=== PATIENT | female | born 1940 | race Caucasian/White ===

== ENCOUNTER 2016-12-17 08:20 | Emergency (ER) | payer OTHER ==
[~2016-12-17] VITALS: Ht 172.7 cm; Wt 81.0 kg
[~2016-12-17 08:20] MED LIST: ALPRAZOLAM0.5 MG PO; CITRACAL + D M1 EACH PO; LIPITOR20 MG PO; MULTIVITAMIN1 EAC2 PO; PLAVIX75 MG; PREMARIN0.3 MG PO; PROAIR HFA8.5 GM IH; SYMBICORT60 INHALAT IH; ZESTRIL,PRINIV2.5 MG PO
[2016-12-17 09:03] LABS: HEMATOCRIT 40.8 % (36.0-46.0); MCH 29.5 PG (29.0-34.0); MCHC 34.3 G/DL (30.0-36.0); MCV 86.1 FL (83-99); PLATELET COUNT 241 K/uL (156-360); RBC DIS.WIDTH-CV 13.5 % (11.8-14.6); RED BLOOD COUNT 4.74 M/uL (3.80-5.20); WHITE BLOOD COUNT 7.3 K/uL (4.1-10.2)
[2016-12-17 09:16] LABS: CHLORIDE 107 mEq/L (99-109); SODIUM 139 mEq/L (136-147)
[2016-12-17 09:18] LABS: GLUCOSE 95 mg/dL (70-99)
[2016-12-17 09:19] LABS: ANION GAP 11 MEQ/L (2-14)
[2016-12-17 09:22] LABS: GFR ESTIMATE (CALCULATED) > 59 mL/min/
[2016-12-17 09:23] LABS: UREA NITROGEN (BUN) 19 mg/dL (9-23)
[2016-12-17 09:26] LABS: TROP-I INTERPRETATION NEGATIVE; TROPONIN-I < 0.01 ng/mL (0.0-0.30)
[2016-12-17 11:33] LABS: ADD MIUA? NO; BILIRUBIN NEGATIVE; BLOOD NEGATIVE; COLOR YELLOW ((YELLOW)); GLUCOSE (STRIP) NEGATIVE; KETONES NEGATIVE; LEUKOCYTES NEGATIVE; NITRITE NEGATIVE; PROTEIN (STRIP) NEGATIVE; SPECIFIC GRAVITY 1.022 (1.000-1.030); UCUL ADDED? NO; UROBILINOGEN 0.2 MG/DL (0.2-1.0)
[2016-12-17 15:19] VITALS: BP 164/76
== END 2016-12-17 15:50 | disposition home or self-care (01) ==
LOC: EME 08:20
PROVIDERS: Emergency Medicine
DX: R26.81 Unsteadiness on feet (principal); I10 Essential (primary) hypertension; E78.5 Hyperlipidemia, unspecified; J44.9 Chronic obstructive pulmonary disease, unspecified; W18.30XA Fall on same level, unspecified, initial encounter; Z91.040 Latex allergy status; Z88.6 Allergy status to analgesic agent
CPT/HCPCS: 71010; 80048; 81003; 84484; 85027; 93005; 99281; 99285; G8978 GP CI; G8979 GP CH; G8987 GO CI; G8988 GO CH

== ENCOUNTER 2018-05-02 10:33 | Emergency (ER) | payer OTHER ==
[~2018-05-02] VITALS: Ht 172.7 cm; Wt 73.8 kg
[2018-05-02 11:34] LABS: BASOPHIL (%) 0.7 % (0-1); BASOPHIL COUNT 0.1 K/uL (0-0.1); EOSINOPHIL (%) 2.2 % (0-5); EOSINOPHIL COUNT 0.2 K/uL (0-0.3); HEMATOCRIT 38.3 % (36.0-46.0); HEMOGLOBIN 12.9 G/DL (11.9-15.5); IMMATURE GRANULOCYTE (%) 0.4 % (0.0-0.7); LYMPHOCYTE (%) 12.2 % (15-42); LYMPHOCYTE COUNT 1.2 K/uL (1.0-2.8); MCH 29.2 PG (29.0-34.0); MCHC 33.7 G/DL (30.0-36.0); MCV 86.7 FL (83-99); MONOCYTE (%) 12.4 % (3-12); MONOCYTE COUNT 1.2 K/uL (0-0.8); NEUTROPHIL (%) 72.1 % (45-76); NEUTROPHIL COUNT 6.9 K/uL (1.8-6.4); PLATELET COUNT 315 K/uL (156-360); RBC DIS.WIDTH-SD 41.1 % (39-53); RED BLOOD COUNT 4.42 M/uL (3.80-5.20); WHITE BLOOD COUNT 9.6 K/uL (4.1-10.2)
[2018-05-02 11:39] LABS: APPEARANCE CLEAR ((CLEAR)); BILIRUBIN NEGATIVE; BLOOD SMALL; COLOR YELLOW ((YELLOW)); GLUCOSE (STRIP) NEGATIVE; KETONES NEGATIVE; LEUKOCYTES NEGATIVE; NITRITE NEGATIVE; PROTEIN (STRIP) NEGATIVE; UROBILINOGEN 0.2 MG/DL (0.2-1.0)
[2018-05-02 11:40] LABS: INTER. NORMALIZED RATIO 1.3
[2018-05-02 11:41] LABS: BACTERIA NONE SEEN /HPF; EPITHELIAL CELLS RARE /HPF; MUCUS NONE SEEN /LPF; RED BLOOD CELLS 0-5 /HPF (0-5); UCUL ADDED? NO; WHITE BLOOD CELLS 0-5 /HPF (0-5)
[2018-05-02 11:43] LABS: PTT 27.4 SEC (25-37)
[2018-05-02 11:46] LABS: CHLORIDE 106 mEq/L (99-109); POTASSIUM 3.9 mEq/L (3.7-5.4); SODIUM 136 mEq/L (136-147)
[2018-05-02 11:47] LABS: MAGNESIUM 2.1 mg/dL (1.3-2.7)
[2018-05-02 11:48] LABS: GLUCOSE 95 mg/dL (70-99)
[2018-05-02 11:49] LABS: TOTAL PROTEIN 7.1 g/dL (6.4-8.3)
[2018-05-02 11:50] LABS: TOTAL BILIRUBIN 0.5 mg/dL (0.0-1.0)
[2018-05-02 11:52] LABS: ALKALINE PHOSPHATASE 97 IU/L (3-129); CREATININE 0.8 mg/dL (0.6-1.3); GFR ESTIMATE (CALCULATED) > 59 mL/min/
[2018-05-02 11:53] LABS: UREA NITROGEN (BUN) 14 mg/dL (9-23)
[2018-05-02 11:54] LABS: AST (GOT) 33 IU/L (2-34)
[2018-05-02 11:55] LABS: ALT (GPT) 23 IU/L (3-49)
[2018-05-02 11:58] LABS: TROP-I INTERPRETATION NEGATIVE; TROPONIN-I < 0.01 ng/mL (0.0-0.30)
[2018-05-02 14:23] LABS: CREATINE KINASE 549 IU/L (1-294)
[2018-05-02] MEDS ORDERED: ERYTHROMYC1 APPLICAT LEFT EYE (15:10)
[2018-05-02 17:59] VITALS: BP 148/63
== END 2018-05-02 18:01 | disposition home or self-care (01) ==
LOC: EME 10:33
PROVIDERS: Emergency Medicine
DX: R41.0 Disorientation, unspecified (principal); R74.8 Abnormal levels of other serum enzymes; H10.9 Unspecified conjunctivitis; F03.90 Unspecified dementia, unspecified severity, without behavioral disturbance, psychotic disturbance, mood disturbance, and anxiety; J44.9 Chronic obstructive pulmonary disease, unspecified; I10 Essential (primary) hypertension; E78.5 Hyperlipidemia, unspecified; G62.9 Polyneuropathy, unspecified; Z79.02 Long term (current) use of antithrombotics/antiplatelets; Z87.891 Personal history of nicotine dependence; Z90.49 Acquired absence of other specified parts of digestive tract; Z88.6 Allergy status to analgesic agent; Z88.8 Allergy status to other drugs, medicaments and biological substances; Z91.040 Latex allergy status
CPT/HCPCS: 70450; 71045; 72070; 72170; 72220; 80053; 81003; 82550; 83735; 84484; 85025; 85610; 85730; 93005; 99281; 99285; G8978 GP CJ; G8979 GP CI; G8980 CJ; G8987 CK; G8988 GO CJ; G8989 GO CK; J7040